=== PATIENT | male | born 1955 ===

== ENCOUNTER 2024-10-07 06:43 | Day surgery (SDC) | payer MEDICARE ==
[2024-10-07] VITALS (14 sets, daily range): BP systolic 107–153; BP diastolic 78–122
[~2024-10-07] VITALS: Ht 172.7 cm; Wt 85.5 kg
[~2024-10-07 06:43] MED LIST: AMLO5 PO; Crestor40 MG PO; LOSA25 PO; Lactated Ringer's 1,000 ML IV SCH; SPIR25 PO; VITAMIN D5000 UNIT PO
[2024-10-07] MEDS ORDERED: propofoL 20 ML IV ONE (07:11)
--- NOTE | 2024-10-07 07:45 | NUR ---
10/07/24 0745 Jeana Fitzpatrick CONFIRMED AND REVIEWED H&P, MEDCICATIONS, ALLERGIES, MEDICAL HISTORY, RESPIRATORY HISTORY, VITAL SIGNS, 3-LEAD EKG, CONSENTS, AND PHYSICIAN ORDERS. PATIENT CONFIRMS NPO STATUS AND AGREES WITH SCHEDULED PROCEDURE. MONITOR INTACT WITH CONTINUOUS PULSE OXIMETRY, CAPNOGRAPHY, 3-LEAD EKG, INTERMITTENT BP. SUPPLEMENTAL O2 TO BE TITRATED THROUGHOUT PROCEDURE TO MAINTAIN O2 SATURATION ABOVE 90%. PATIENT DETERMINED TO BE ASA APPROPRIATE FOR PROPOFOL SEDATION PRIOR TO START OF PROCEDURE BY DR. LOPEZ
--- NOTE | 2024-10-07 08:01 | NUR ---
PT TO DAY SURGERY STEP DOWN FROM COLONOSCOPY; BEDSIDE REPORT RECEIVED. PT IS AWAKE, ALERT AND ORIENTED; ABLE TO MOVE SELF IN BED. NO COMPLAINTS.
--- NOTE | 2024-10-07 08:14 | NUR ---
PT DECLINES PO FLUIDS. Discharge instructions reviewed with patient. Patient verbalizes understanding. Copy given to patient to take home. Patient States Post-Procedure ride home has been arranged.
--- NOTE | 2024-10-07 08:22 | NUR ---
Patient up to Ambulate independently. Gait steady. Discharged via wheelchair to private car for ride home.
== END 2024-10-07 08:23 | disposition home or self-care (01) ==
LOC: ORSCMMR 06:43 → ORD 07:30 → ORSCMMR 08:23
PROVIDERS: Internal Medicine Gastroenterology
PROC: 0DBM8ZX Excision of Descending Colon, Via Natural or Artificial Opening Endoscopic, Diagnostic (ICD-10-PCS; principal; 2024-10-07 07:30)
DX: Z12.11 Encounter for screening for malignant neoplasm of colon (principal); Z80.0 Family history of malignant neoplasm of digestive organs; K63.5 Polyp of colon; I10 Essential (primary) hypertension; E78.00 Pure hypercholesterolemia, unspecified; Z79.899 Other long term (current) drug therapy
CPT/HCPCS: 88305; J2704; J7120

== ENCOUNTER 2025-09-16 11:29 | Day surgery (SDC) | payer MEDICARE ==
[~2025-09-16] VITALS: Ht 170.2 cm; Wt 85.5 kg
[~2025-09-16 11:29] MED LIST changes: +Bupivacaine 0.5% W/EPI 1:200000 SDV 30 ML Vial ONE; -Lactated Ringer's 1,000 ML IV SCH; +Lidocaine HCl 2% 10 ML SDA ONE
[2025-09-16] MEDS ORDERED: CeFAZolin Sodium 2,000 MG VIAL ONE (11:52)
[2025-09-16] MEDS ORDERED: FentaNYL Citrate 50 MCG/ML 2 ML Injection ONE (12:40)
[2025-09-16] MEDS ORDERED: Midazolam HCl 1MG / ML 2ML Vial ONE (12:40)
[2025-09-16] MEDS ORDERED: Ondansetron HCl 2 MG / ML 2ML Vial ONE (13:00)
[2025-09-16] MEDS ORDERED: Metoclopramide HCl 5MG / ML 2ML Vial ONE (13:00)
[2025-09-16 15:19] VITALS: BP 105/81
== END 2025-09-16 15:00 | disposition home or self-care (01) ==
LOC: ORSCSDS 11:29
PROVIDERS: Podiatrist Foot & Ankle Surgery
PROC: 0SGM04Z Fusion of Right Metatarsal-Phalangeal Joint with Internal Fixation Device, Open Approach (ICD-10-PCS; principal; 2025-09-16 13:00)
DX: M20.21 Hallux rigidus, right foot (principal); M21.611 Bunion of right foot; M77.31 Calcaneal spur, right foot; I10 Essential (primary) hypertension; Z79.899 Other long term (current) drug therapy
CPT/HCPCS: A6253; C1713; C1889; J0690; J2003; J2250; J2405; J2704; J2765; J3010